=== PATIENT | male | born 1990 | race Two or more races ===

== ENCOUNTER → 2024-12-13 | Outpatient (CLI) | payer MEDICAID, SELFPAY ==
--- NOTE | 2024-12-13 08:15 | XR_ITS ---
Examination: Abdomen sonogram, complete Date and time of exam: December 13, 2024 0917 hours INDICATIONS: Generalized abdominal pain several years. Technique: Multiple real-time grayscale transabdominal sonographic images of the abdomen have been obtained. Findings: Normal gallbladder Normal common bile duct 0.2 cm Pancreatic head 1.8 cm Aorta not enlarged Liver 14.4 cm fatty infiltration Normal hepatopedal portal venous flow Patent IVC Right kidney 11.1 cm cortex 1.6 cm Left kidney 10.9 cm cortex 1.7 cm No hydronephrosis Spleen 9.1 cm IMPRESSION: Fatty liver, no focal liver lesions Normal gallbladder
== END | disposition home or self-care (01) ==
PROVIDERS: Referring Provider Registered Nurse Community Health; Visit Provider Registered Nurse Community Health
DX: K21.00 Gastro-esophageal reflux disease with esophagitis, without bleeding (principal); K76.0 Fatty (change of) liver, not elsewhere classified
CPT/HCPCS: 76700

== ENCOUNTER → 2025-02-09 | Outpatient (CLI) | payer MEDICAID, SELFPAY ==
--- NOTE | 2025-02-09 09:21 | XR_ITS ---
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 There is no stricture at the gastroesophageal junction Upright PA chest demonstrates clear lungs no aspiration pneumonia No gastric mass deformity or ulceration. Duodenal bulb expands symmetrically and sweep jejunal loops unremarkable IMPRESSION: Moderate intermittent gastroesophageal reflux No gastric mass deformity or ulceration
== END | disposition home or self-care (01) ==
LOC: CDIM 09:01
PROVIDERS: PCP Registered Nurse Community Health; Referring Provider Registered Nurse Community Health; Visit Provider Registered Nurse Community Health
DX: K21.9 Gastro-esophageal reflux disease without esophagitis (principal)
CPT/HCPCS: 74240; A4649

== ENCOUNTER → 2025-02-23 | Outpatient (BNVA) | payer MEDICAID, SELFPAY | END | disposition home or self-care (01) | PROVIDERS: PCP Registered Nurse Community Health; Referring Provider Registered Nurse Community Health; Visit Provider Urology | DX: N40.0 Benign prostatic hyperplasia without lower urinary tract symptoms (principal); Z30.2 Encounter for sterilization; Q55.22 Retractile testis; E66.9 Obesity, unspecified; Z68.32 Body mass index [BMI] 32.0-32.9, adult | CPT/HCPCS: 81003; 99212; G0463 ==

== ENCOUNTER 2025-06-14 06:15 | Day surgery (SDC) | payer MEDICAID, SELFPAY ==
[2025-06-13 12:42] VITALS: BMI 35.5
[2025-06-14] VITALS (7 sets, daily range): BP systolic 112–130; BP diastolic 62–73; PULSE 65–88; RESP 12–17; TEMP 36.2–36.9; O2SAT 95–99; BMI 35.5
[2025-06-14] MEDS: RINGERS LACTATED 1000 ML 1,000 ML 20 ML IV (06:49)
--- NOTE | 2025-06-14 07:25 | CHAP ---
Prayed with patient before his procedure.
--- NOTE | 2025-06-14 10:06 | SUR.PHASEI ---
pt received from OR in recover bay 7. pt obtunded, breathing unlabored on 10l nc, lma in place. v/s stable. pt dressing to scrotal area cdi. report received from Easton GRIJALVA and Hero WILLAMS.
--- NOTE | 2025-06-14 10:08 | PD.SUROPNT ---
Date of Procedure 06/14/25 Pre Op Diagnosis Elective sterilization, obesity Post Op Diagnosis Same Procedure Bilateral vasectomy Findings Bilateral vas no pathology Procedure Description Indication for procedure this is a 35-year-old gentleman he is which he does not desired bilateral vasectomy procedure and complications were discussed with the patient in great detail informed consent is obtained he understood very well there is no warranty for permanent sterilization literature regarding bilateral vasectomy was provided to the patient Procedure patient was brought to the operating room in a satisfactory condition after appropriate premedication was put on the operating table in a supine position general anesthesia was given uneventfully parts were prepped and draped in a usual sterile fashion. Next the right vas deferens was palpated between 2 fingers and a thumb 2% lidocaine with quarter percent Marcaine was instilled appropriately vertical skin incision was made proper hemostasis was secured. Next the vas deferens was brought into the incision it was from its various fascial coverings between 2 silver clips centimeter of the vas deferens was excised. The lumen of the vas deferens was diathermized with coagulation diathermy distal end of the vas deferens was buried between various fascial layers. Skin was approximated with 3-0 chromic. Similar procedure was repeated on the opposite side. Next this sterile dressings were applied. Pressure bandage was given Patient having tolerated the procedure well and was sent to recovery room in a satisfactory condition to be discharged home with full postoperative instructions were verbally as well as in writing to be followed in urology office in 12 weeks' time. Anesthesia GETA Pathology / specimen None Estimated Blood Loss 0.2 Condition Stable Disposition PACU Surgeon Alfonso Castaneda MD Surgical Staff Operation Date: 06/14/25 08:30 Case Staff PROCESS DEVELOPMENT ASSOCIATE: Danny Amor
--- NOTE | 2025-06-14 10:22 | SUR.PHASEI ---
pt able to tolerate oral fluids without difficulty swallowing or nausea/vomiting.
--- NOTE | 2025-06-14 11:05 | SUR.PHASEII ---
pt awake and alert, breathing unlabored on room air. v/s stable. pt dressing to scrotal area cdi. pt able to ambulate to wheelchair with steady gait. d/c instructions given with Anahi in room, all questions answered. pt d/c via wheelchair with all belongings.
== END 2025-06-14 11:05 | disposition home or self-care (01) ==
PROVIDERS: Referring Provider Urology; Visit Provider Urology
PROC: (CPT 55250; principal; 2025-06-14 08:30)
DX: Z30.2 Encounter for sterilization (principal); E66.9 Obesity, unspecified; Z68.35 Body mass index [BMI] 35.0-35.9, adult
CPT/HCPCS: 55250; A4649; J2250; J2704; J3010; J3490; J7120; A9270; J1596